=== PATIENT | female | born 1960 | race Caucasian/White ===

== ENCOUNTER 2017-10-14 08:02 | Emergency (ER) | payer OTHER, MEDICAID, SELFPAY ==
[2017-10-14] VITALS (14 sets, daily range): BP systolic 114–185; BP diastolic 52–99; PULSE 77–94; RESP 14–22; TEMP 37.1; O2SAT 92–99; BMI 34.3
--- NOTE | 2017-10-14 08:03 | DI.RAD.S_ITS ---
PROCEDURE: XR FEMUR LT MIN 2V INDICATIONS: pain. TECHNIQUE: 4 views of the femur were acquired. COMPARISON: None. FINDINGS: Bones: Status post lumbosacral fixation and total left hip arthroplasty. Hip components appear intact and in normal alignment. No fractures or dislocations. No suspicious bony lesions. 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 Soft tissues: No suspicious soft tissue calcifications or masses. IMPRESSION: 1. Status post total left hip arthroplasty with no apparent abnormality or source of pain. Dictated by: Gen Jenkins M.D. on 10/14/2017 at 8:31 Approved by: Gen Jenkins M.D. on 10/14/2017 at 8:33
--- NOTE | 2017-10-14 08:06 | DI.RAD.S_ITS ---
PROCEDURE: XR PELVIS 1-2V INDICATIONS: pain TECHNIQUE: One view(s) of the pelvis acquired. COMPARISON: [facility], CR, XR FEMUR LT MIN 2V, 10/14/2017, 8:06. [facility] [place], CR, XR PELVIS W LATERAL HIP LT, 02/28/2016, 13:30. FINDINGS: Bones: Postoperative changes of lumbosacral fixation with screws and vertical connecting rods bilaterally. Status post total left hip arthroplasty since last study with no apparent malalignment or loosening. There is a small bone fragment noted medial to the greater trochanter that may represent a small cortical avulsion. Advanced osteoarthritis of the right hip. No suspicious bony lesions. Soft tissues: Visualized bowel gas pattern is normal. No suspicious soft tissue calcifications. IMPRESSION: 1. Postoperative changes. Probable small cortical avulsion medial to the greater trochanter, chronicity indeterminate. 2. Advanced osteoarthritis right hip. 3. Status post lumbosacral fusion. Dictated by: Gen Jenkins M.D. on 10/14/2017 at 8:33 Approved by: Gen Jenkins M.D. on 10/14/2017 at 8:40
[2017-10-14] MEDS: KETOROLAC 60 MG/2 ML VIAL 30 MG IV (08:43)
--- NOTE | 2017-10-14 08:49 | ED.LOWEXIN ---
HPI - Extremity Injury (Lower) General Chief Complaint: Extremity Injury, Lower Stated Complaint: L hip pain Time Seen by Provider: 10/14/17 08:25 Source: patient and EMS Mode of arrival: EMS Limitations: no limitations History of Present Illness HPI Narrative: Patient is a 57-year-old female who presents with left hip pain. She is status post left total hip arthroplasty she was discharged from [facility] 3 days ago. She was ambulatory with a walker she was doing well. Yesterday she thinks she overdid it. And this morning she was trying have a bowel movement and rocking back and forth on the toilet. She did have a bowel movement however she is now not able to stand on her hip she denies numbness or tingling. She has not had fever or chills. She denies any fall. MD complaint: hip injury Related Data Home Medications Medication Instructions Recorded Confirmed acetaminophen [Mapap Extra 1,000 mg PO TID PRN 10/14/17 10/14/17 Strength] albuterol sulfate [Ventolin HFA] 2 puff INH Q4HP PRN 10/14/17 10/14/17 celecoxib [Celebrex] 200 mg PO BIDWM 10/14/17 10/14/17 cholecalciferol (vitamin D3) 1 tab PO DAILY 10/14/17 10/14/17 [Vitamin D3] cyclobenzaprine 10 mg PO BID 10/14/17 10/14/17 diclofenac sodium [Voltaren] 1 carolynn TOPICAL QID 10/14/17 10/14/17 fluticasone [Flonase Allergy 15.8 ml NS QDAY PRN 10/14/17 10/14/17 Relief] hydroxyzine pamoate 1 cap PO Q4H PRN 10/14/17 10/14/17 ipratropium-albuterol 3 ml INH QID PRN 10/14/17 10/14/17 lamotrigine [Lamictal] 200 mg PO QHS 10/14/17 10/14/17 loratadine 10 mg PO QDAY PRN 10/14/17 10/14/17 lorazepam [Ativan] 1 mg PO BID 10/14/17 10/14/17 omeprazole 40 mg PO QDAY PRN 10/14/17 10/14/17 ondansetron HCl 1 tab PO Q8H PRN 10/14/17 10/14/17 oxycodone 5 - 10 mg PO Q3H PRN 10/14/17 10/14/17 polyethylene glycol 3350 [Miralax] 17 gm PO EVERY OTHER DAY 10/14/17 10/14/17 rivaroxaban [Xarelto] 10 mg PO QPM 10/14/17 10/14/17 sennosides [senna] 2 tab PO BID PRN 10/14/17 10/14/17 tramadol 50 - 100 mg PO Q6H PRN 10/14/17 10/14/17 Previous Rx's Medication Instructions Recorded docusate sodium [DOK] 250 mg PO QDAY #90 sgl 10/28/16 levothyroxine [Synthroid] 0.075 mg PO QDAY #90 tab 11/24/16 duloxetine [Cymbalta] 20 mg PO QDAY #90 cap 04/07/17 duloxetine [Cymbalta] 60 mg PO QDAY #90 cap 04/08/17 trazodone 150 mg PO HS #30 tab 06/05/17 Allergies Allergy/AdvReac Type Severity Reaction Status Date / Time adhesive [ADHESIVE] Allergy Mild tape-rash Verified 10/14/17 08:43 codeine [CODEINE] Allergy Mild rash Verified 10/14/17 08:43 Sulfa (Sulfonamide Allergy Mild rash Verified 10/14/17 08:43 Antibiotics) [SULFA (SULFONAMIDE ANTIBIOTICS)] RAG WEED Allergy Unknown Uncoded 10/14/17 08:27 Review of Systems Review of Systems All systems reviewed & are unremarkable except as noted in HPI and below Constitutional Denies chills, Denies fever(s), Denies frequent falls, Denies lethargy and Denies weakness Cardiovascular Denies chest pain, Denies irregular heart rhythm, Denies lightheadedness, Denies palpitations, Denies dyspnea, Denies dyspnea on exertion and Denies orthopnea Respiratory Denies cough, Denies dyspnea, Denies dyspnea on exertion and Denies wheezing Musculoskeletal Reports system reviewed and no additional complaints, except as docu and Reports as per HPI Integumentary/Breasts Denies pruritus, Denies erythema, Denies rash and Denies wounds Neurologic Denies confusion, Denies frequent falls and Denies weakness Psychiatric Denies confusion Endocrine Denies palpitations Allergic/Immunologic Denies wheezing PFSH Surgical History History of total left hip arthroplasty (Acute) Status post delivery Status post cone biopsy of cervix Status post hysterectomy Family History Brother AML (acute myeloblastic leukemia) Mother Chronic back pain Social History household members: children Exam Initial Vital Signs Initial Vital Signs: Vital Signs Temperature 98.7 F 10/14/17 08:09 Pulse Rate 94 H 10/14/17 08:09 Respiratory Rate 22 10/14/17 08:09 Blood Pressure 114/63 10/14/17 08:09 Pulse Oximetry 97 10/14/17 08:09 Const General: cooperative and anxious Nutritional Appearance: average body habitus Orientation: alert, awake and oriented x3 Resp Effort & Inspection: normal respiratory effort, able to speak in complete sentences, no respiratory distress and no use of accessory muscles Auscultation: clear to auscultation bilaterally, no rales, no rhonchi and no wheezes Cardio Rate: regular rate Rhythm: regular rhythm Heart Sounds: no click, no gallops, no murmurs and no rubs Pulses: normal peripheral pulses GI Inspection: non-distended Palpation: soft, no hepatosplenomegaly, No guarding, No pulsatile mass and No tender Auscultation: normal bowel sounds Skin Other: Incision over all left hip clean dry no erythema no gross pus minimal swelling Neuro General: alert, awake and oriented x3 Cranial Nerves: CN's II-XI intact bilaterally Extrem General: normal to inspection Left lower extremity: normal to inspection Other: Left leg legs are of equal length distal pedal pulse in intact decreased range of motion due to pain and swelling of left hip knee and ankle within normal limits Course Hospital Course: Physical therapy in the ED to evaluate patient. Kendrick has kicked in she is a little under the influence but she is able to walk and ambulate with walker. Waiting for daughter feels that she can have specific instructions. Orders Ordered: ED Orders 10/14/17 09:00 Consult to Physical Therapy Evaluate & Treat Sodium Chloride (Normal Saline 0.9%) 1,000 mls @ 150 mls/hr IV CONT GHULAM Last Admin: 10/14/17 16:46 Dose: 150 mls/hr Discontinued Medications Hydromorphone HCl (Dilaudid) 1 mg IV NOW ONE Stop: 10/14/17 09:28 Last Admin: 10/14/17 09:30 Dose: 1 mg Lidocaine HCl 6.8 ml/ Sodium (Chloride) 56.8 mls @ 340.8 mls/hr IV NOW ONE Stop: 10/14/17 16:24 Last Infusion: 10/14/17 16:43 Dose: 0 mls/hr Admin: 10/14/17 16:25 Dose: 340.8 mls/hr Ketorolac Tromethamine (Toradol) 30 mg IV NOW ONE Stop: 10/14/17 08:38 Last Admin: 10/14/17 08:43 Dose: 30 mg Lidocaine HCl (Xylocaine 2%) 6.8 ml 0.075 ml/kg (6.8 ml) IV NOW ONE Stop: 10/14/17 15:37 Last Admin: 10/14/17 16:25 Dose: Lorazepam (Ativan) 0.5 mg IV NOW ONE Stop: 10/14/17 15:38 Last Admin: 10/14/17 15:57 Dose: 0.5 mg Oxycodone/Acetaminophen (Percocet 5/325) 1 tab PO NOW ONE Stop: 10/14/17 13:01 Last Admin: 10/14/17 13:04 Dose: 1 tab Reevaluation(s) Reevaluation #1: Dr. Balbuena at [facility] has been updated on patient's x-ray results. Likely over did it, he did get a call yesterday thing that she was in more pain and was doing a lot more. Recommends Toradol pushing images to [facility] follow-up next week on Thursday. Time: 08:57 Reevaluation #2: Dr. Balbuena office called the ED. Apparently he sees something on the x-ray recommend patient be transferred to [facility] she will need a revision. Time: 11:55 Vital Signs - 8 hr 10/14/17 10:32 10/14/17 11:06 10/14/17 11:30 Pulse Rate 88 92 H 82 Respiratory Rate 16 16 15 Blood Pressure [Left Arm] 151/91 H 117/52 L 118/61 Pulse Oximetry 94 94 95 10/14/17 13:30 10/14/17 14:00 10/14/17 14:30 Pulse Rate 86 88 85 Respiratory Rate Blood Pressure [Left Arm] 115/95 H 125/81 H 130/99 H Pulse Oximetry 94 96 96 10/14/17 15:30 10/14/17 16:30 10/14/17 17:31 Pulse Rate 80 85 84 Respiratory Rate 15 16 Blood Pressure [Left Arm] 138/79 H 131/69 H 185/87 H Pulse Oximetry 92 96 99 MDM - Extremity Injury (Lower) Imaging Data femur x ray: Attestation: I personally reviewed and interpreted this imaging study as follows: Radiologist's impression: PROCEDURE: XR FEMUR LT MIN 2V INDICATIONS: pain. TECHNIQUE: 4 views of the femur were acquired. COMPARISON: None. FINDINGS: Bones: Status post lumbosacral fixation and total left hip arthroplasty. Hip components appear intact and in normal alignment. No fractures or dislocations. No suspicious bony lesions. 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 Soft tissues: No suspicious soft tissue calcifications or masses. IMPRESSION: 1. Status post total left hip arthroplasty with no apparent abnormality or source of pain. Dictated by: Gen Jenkins M.D. on 10/14/2017 at 8:31 left hip: Attestation: I personally reviewed and interpreted this imaging study as follows: Radiologist's impression: PROCEDURE: XR PELVIS 1-2V INDICATIONS: pain TECHNIQUE: One view(s) of the pelvis acquired. COMPARISON: [facility], CR, XR FEMUR LT MIN 2V, 10/14/2017, 8:06. [facility] [place], ROSMERY, XR PELVIS W LATERAL HIP LT, 02/28/2016, 13:30. FINDINGS: Bones: Postoperative changes of lumbosacral fixation with screws and vertical connecting rods bilaterally. Status post total left hip arthroplasty since last study with no apparent malalignment or loosening. There is a small bone fragment noted medial to the greater trochanter that may represent a small cortical avulsion. Advanced osteoarthritis of the right hip. No suspicious bony lesions. Soft tissues: Visualized bowel gas pattern is normal. No suspicious soft tissue calcifications. IMPRESSION: 1. Postoperative changes. Probable small cortical avulsion medial to the greater trochanter, chronicity indeterminate. 2. Advanced osteoarthritis right hip. 3. Status post lumbosacral fusion. Dictated by: Gen Jenkins M.D. on 10/14/2017 at 8:33 MDM Narrative Medical decision making narrative: The patient being transferred to [facility] for total hip revision. Patient's pain has been relatively controlled here in the ED. She responded well to IV lidocaine. Discharge Plan Departure Patient Disposition: [facility] Clinical Impression: Post-operative complication, Post-op pain Instructions: DI for Postoperative Pain Prescriptions: No Action docusate sodium [DOK] 250 MG capsule 250 mg PO QDAY Qty: 90 RF: 3 levothyroxine [Synthroid] 75 MCG tablet 0.075 mg PO QDAY Qty: 90 RF: 3 duloxetine [Cymbalta] 20 MG capsule,delayed release(DR/EC) 20 mg PO QDAY Qty: 90 RF: 1 duloxetine [Cymbalta] 60 MG capsule,delayed release(DR/EC) 60 mg PO QDAY Qty: 90 RF: 3 trazodone 150 MG tablet 150 mg PO HS Qty: 30 RF: 3 tramadol 50 mg tablet 50 - 100 mg PO Q6H PRN (Reason: Pain, Moderate) RF: 0 acetaminophen [Mapap Extra Strength] 500 mg tablet 1,000 mg PO TID PRN (Reason: Pain, Mild) RF: 0 hydroxyzine pamoate 25 mg capsule 1 cap PO Q4H PRN (Reason: PAIN/ANXIETY) RF: 0 rivaroxaban [Xarelto] 10 mg tablet 10 mg PO QPM RF: 0 sennosides [senna] 8.6 mg Tablet 2 tab PO BID PRN (Reason: Constipation) RF: 0 ondansetron HCl 4 mg tablet 1 tab PO Q8H PRN (Reason: NAUSEA OR VOMITING) RF: 0 oxycodone 5 mg tablet 5 - 10 mg PO Q3H PRN (Reason: Pain, Severe) RF: 0 cholecalciferol (vitamin D3) [Vitamin D3] 5,000 unit Tablet 1 tab PO DAILY RF: 0 lamotrigine [Lamictal] 200 MG tablet 200 mg PO QHS RF: 0 celecoxib [Celebrex] 200 mg Capsule 200 mg PO BIDWM RF: 0 cyclobenzaprine 10 MG tablet 10 mg PO BID RF: 0 ipratropium-albuterol 3 ML solution for nebulization 3 ml INH QID PRN (Reason: Shortness Of Breath) RF: 0 polyethylene glycol 3350 [Miralax] 17 GM powder in packet 17 gm PO EVERY OTHER DAY RF: 0 omeprazole 40 MG capsule,delayed release(DR/EC) 40 mg PO QDAY PRN (Reason: Indigestion) RF: 0 lorazepam [Ativan] 1 MG tablet 1 mg PO BID RF: 0 albuterol sulfate [Ventolin HFA] 90 MCG/PUFF HFA aerosol inhaler 2 puff INH Q4HP PRN (Reason: Shortness Of Breath) RF: 0 fluticasone [Flonase Allergy Relief] 9.9 ML spray,suspension 15.8 ml NS QDAY PRN (Reason: Nasal Congestion) RF: 0 loratadine 10 MG tablet 10 mg PO QDAY PRN (Reason: Nasal Congestion) RF: 0 diclofenac sodium [Voltaren] 1 % gel 1 carolynn Topical QID RF: 0 Referrals: Pascale Mcguire MD [Primary Care Provider] - Petr Garcia MD [Non-Staff] -
--- NOTE | 2017-10-14 09:11 | PC.NURSE ---
S/W nurse from ortho office. Images sent per surgeon request.
[2017-10-14] MEDS: HYDROMORPHONE 2 MG INJ 1 MG IV (09:30)
--- NOTE | 2017-10-14 10:24 | PC.NURSE ---
PT pulled out own IV. Intact
--- NOTE | 2017-10-14 11:16 | PC.NURSE ---
Stable. Waiting for daughter to come and get instruction from PT prior to DC
--- NOTE | 2017-10-14 11:38 | PC.NURSE ---
PT here to show pts daughter how to assist pt with transfers at home
--- NOTE | 2017-10-14 12:23 | PC.NURSE ---
PT left note concerns over in home care for PT. PT has stated she does have home health and PT is set up. [place] is given with resources for PT.
[2017-10-14] MEDS: OXYCODONE/ACETAMINOPHEN 5/325 TABLET 1 TAB PO (13:04)
--- NOTE | 2017-10-14 13:26 | PT.IIE ---
Surgical History Status post delivery Status post cone biopsy of cervix Status post hysterectomy Physical Therapy Inpatient Evaluation/Re-Eval M1 PT/OT-IP Prior Functional Status Start: 10/14/17 13:06 Freq: Status: Active Protocol: Document 10/14/17 13:08 [facility] (Rec: 10/14/17 13:26 [facility] [id number]) Medical Review Prior Functional Status Medical History Reviewed Yes Mobility and Gait Since BAILEY pt has been using FWW Social History Household Members children Living Arrangements Apartment/Condo Number of Floors (Floors) One Floor Number of Stairs To Enter/Railing? 0 Home Environment Standard Height Toilet Tub/Shower Home Equipment Front Wheel Walker Four Wheel Walker Bedside Commode Raised Toilet Seat Without Armrests Shower Seat without Backrest Machine Operator Farmworker Employment Status Unemployed Additional Social History Comment Dgt just moved here to help pt . M2 PT-IP Current Condition Start: 10/14/17 13:06 Freq: Status: Active Protocol: Document 10/14/17 13:08 [facility] (Rec: 10/14/17 13:26 [facility] [id number]) Physical Therapy Current Condition Current Condition Evaluation Date 10/14/17 Treatment Diagnosis pain s/p L BAILEY Onset Date 10/09/17 L BAILEY post approach at [facility] Precautions Posterior Hip Precautions No Hip Flexion > 90 degrees No Hip Internal Rotation No Hip Adduction Weight Bearing Status Weight Bearing Status Weight Bear as Tolerated M3 PT-IP Subjective Start: 10/14/17 13:06 Freq: Status: Active Protocol: Document 10/14/17 13:08 [facility] (Rec: 10/14/17 13:26 [facility] [id number]) Subjective Physical Therapy Visit Type Type Initial Evaluation Notes 2 visits completed for pt in AM- 10-1035 & 1130 to 1205 totalling 70 minutes Number of PRODUCTION MANAGER Visits 0 Physical Therapy Visit Comments Patient Comments Pt reports she is scared of putting weight on LLE Therapy Pain Assessment Pain When Pain Assessed During Mobility Pain Present Pain Present Pain Reported Location Left Hip Pain Behaviors Calling Out Facial Grimacing [place] Pain Management Techniques Apply Cold M4 PT-IP Mobility and Gait Start: 10/14/17 13:06 Freq: Status: Active Protocol: Document 10/14/17 13:08 [facility] (Rec: 10/14/17 13:26 [facility] [id number]) PT-Bed Mobility Assessment Supine to Sit Supine to Sit Moderate Assistance Sit to Supine Sit to Supine Moderate Assistance Scooting Scooting to Edge of Bed Contact Guard Assistance Scooting Up and Down in Bed Standby Assistance Bed Transfer Assessment Technique Bed Transfer Destination Ambulatory Bed Transfer Technique Sit to/from Ambulatory Specific Evaluation Sit to Stand Bed Transfer Ability Standby Assistance Stand to Sit Bed Transfer Ability Standby Assistance Comments Factors Limiting Bed Transfer Decreased Strength Limited Range of Motion Pain Gait Assessment Gait Gait Assistance Required: Contact Guard Assist Minimum Assistance Distance (Feet) (feet) 50 Able to Maintain Weight Bearing Status Yes During Gait Assistive Devices Assistive Device Front Wheeled Walker Orthotic/Prosthetic Devices or Brace: No Gait Deviations General Gait Pattern Antalgic Decreased Stride Length Flexed Trunk Factors Limiting Gait Function Factors Limiting Gait Function Decreased Strength Limited Range of Motion Pain Poor Balance Comments Gait Comments 50ft FWW & 20 ft FWW during separate sessions- min A for first 20ft of 1st walk then CGA for rest of gait PT-Balance Assessment Sitting Balance and Reactions Static Sitting Balance Ability Normal Dynamic Sitting Balance Ability Normal Standing Balance and Reactions Static Standing Balance Ability Fair Dynamic Standing Balance Ability Fair M5 PT-IP Objective Assessments Start: 10/14/17 13:06 Freq: Status: Active Protocol: Document 10/14/17 13:08 [facility] (Rec: 10/14/17 13:26 [facility] [id number]) Strength Lower Extremity Strength Assessment Bilaterally Impaired M6 PT-IP Treatment Start: 10/14/17 13:06 Freq: Status: Active Protocol: Document 10/14/17 13:08 [facility] (Rec: 10/14/17 13:26 [facility] [id number]) Physical Therapy Treatment Education Education Provided Precautions Weight Bearing Status Safety Other Treatments Other Treatment Performed Edu on donning/doffing compression socks, discussed tub transfer bench and doing sponge baths until appropriate bath set up present, edu on how to use gait belt & staying with pt at all times, use of FWW vs 4WW, pt not doing LE dressing indep without assist & setting up all required items close to her. Edu to dgt how to help with bed mobility & avoiding low chairs & using cushion as needed M7 PT-IP Assessment and Plan Start: 10/14/17 13:06 Freq: Status: Active Protocol: Document 10/14/17 13:08 [facility] (Rec: 10/14/17 13:26 [facility] [id number]) PT Summary Assessment and Plan Potential Rehabilitation Potential Good Status of Condition at Evaluation Evolving Summary Impairments Pain ROM Strength Balance Bed Mobility Transfers Gait Assessment Summary Dgt was present for 2nd session & was educated to help pt and was very receptive to edu. Patient and dgt had no concerns when asked at end of session and dgt able to safely guard pt during mobility. Treatment Plan Other Recommendations and Next Treatment pt to d/c home after this Focus session Recommendations To Nursing Amount of Assist Needed 1 Person Assist Discharge Recommendations PT Discharge Recommendations Home with 08/12 Assist Home Health Provider Visit Care Team Role Provider Type Pascale Mcguire MD Family Provider Physician Primary Care Provider Specialty: Family Practice Sari Villeda DO Emergency Provider Physician Specialty: Emergency Medicine
[2017-10-14] MEDS: LORazepam 2 MG/ML SYRINGE 0.5 MG IV (15:57)
[2017-10-14] MEDS: LIDOCAINE 2% 6.8 ML in SODIUM CHLORIDE 0.9% 50 ML 340.8 ML IV (16:25)
[2017-10-14] MEDS: SODIUM CHLORIDE 0.9% 1,000 ML 150 ML IV (16:46)
[2017-10-14] MEDS: HYDROMORPHONE 0.5 MG INJ IV ×2 (18:48→19:53)
== END 2017-10-14 20:02 | disposition short-term general hospital (02) ==
PROVIDERS: Emergency Provider Emergency Medicine; Family Provider Family Medicine; PCP Family Medicine
DX: G89.18 Other acute postprocedural pain (principal)
CPT/HCPCS: 51701; 51705; 72170; 73552; 96365; 96375; 96376; 97162; 97530; 99284; 99285; J1170; J1885; J2060

== ENCOUNTER → 2018-06-01 10:15 | Outpatient (CLI) | payer OTHER, SELFPAY ==
[2018-06-01 11:21] LABS: Hematocrit 42.3 % (36-46); Hemoglobin 14.2 g/dL (12.0-16.0); Mean Corpuscular HGB Conc 33.5 % (30-36); Mean Corpuscular Hemoglobin 29.7 PG (26-34); Mean Corpuscular Volume 88.6 fL (80-100); Platelet Count 137 X10^3/uL (150-400); Red Blood Cell Count 4.77 X10^6/uL (4.0-5.2); Red Cell Distribution Width 13.8 % (11.6-14.8); White Blood Cell Count 7.8 X10^3/uL (4.5-11.0)
[2018-06-01 11:40] LABS: Hemoglobin A1C% w Est Avg Glu 5.5 % (4.0-6.0)
[2018-06-01 11:46] LABS: Vitamin D 25 Hydroxy (D3) 56.6 ng/mL (30.0-100.0)
[2018-06-01 11:50] LABS: Free T4, Direct Thyroxine 1.11 ng/dL (0.78-2.19)
[2018-06-01 12:04] LABS: Thyroid Stimulating Hormone 2.11 uIU/mL (0.47-4.68)
== END ==
PROVIDERS: PCP Student in an Organized Health Care Education/Training Program; Visit Provider Student in an Organized Health Care Education/Training Program
DX: E03.9 Hypothyroidism, unspecified (principal); D69.6 Thrombocytopenia, unspecified; E55.9 Vitamin D deficiency, unspecified; R73.9 Hyperglycemia, unspecified
CPT/HCPCS: 36415; 82306; 83036; 84439; 84443; 85027

== ENCOUNTER → 2018-08-04 16:04 | Outpatient (CLI) | payer OTHER, MEDICAID, SELFPAY ==
--- NOTE | 2018-08-04 16:06 | DI.RAD.S_ITS ---
PROCEDURE: XR CHEST 2V INDICATIONS: Cough TECHNIQUE: 2 views of the chest were acquired. COMPARISON: [facility], CHEST 1 VIEW, 02/07/2011, 5:37. [facility], CHEST 1 VIEW, 02/07/2011, 8:47. [facility], CHEST 2 VIEW, 08/10/2014, 10:31. FINDINGS: Surgical changes and devices: None. Lungs and pleura: Bilateral diffuse interstitial thickening and mild pulmonary fibrosis. No pleural effusions or pneumothorax. Mediastinum: Mediastinal contours are normal. Heart size is normal. Bones and chest wall: No suspicious bony abnormalities. Soft tissues appear unremarkable. IMPRESSION: Bilateral diffuse interstitial thickening and mild pulmonary fibrosis consistent with chronic interstitial lung disease. No focal consolidation or pleural effusion. Dictated by: Zainab Mackenzie M.D. on 08/04/2018 at 16:42 Approved by: Zainab Mackenzie M.D. on 08/04/2018 at 16:46
== END ==
PROVIDERS: PCP Student in an Organized Health Care Education/Training Program; Visit Provider Student in an Organized Health Care Education/Training Program
DX: R05 Cough (principal); J84.10 Pulmonary fibrosis, unspecified; F17.200 Nicotine dependence, unspecified, uncomplicated
CPT/HCPCS: 71046

== ENCOUNTER → 2018-12-06 09:08 | Outpatient (CLI) | payer OTHER, MEDICAID, SELFPAY ==
--- NOTE | 2018-12-06 09:14 | DI.CT.S_ITS ---
PROCEDURE: CT CHEST HIGH RESOLUTION INDICATIONS: Suspected pulmonary fibrosis; worsening sx TECHNIQUE: Noncontrast 1.0 and 5.0 mm thick contiguous axial sections from the pulmonary apex to the posterior costophrenic angles, with 7 mm thick coronal and sagittal MIP reformats. 1 mm thick dynamic expiratory images acquired through the upper, mid, and lower lungs. 1.0 mm thick axial sections acquired from the marisol to the posterior costophrenic angles in the prone end-inspiration position. For radiation dose reduction, the following was used: automated exposure control, adjustment of mA and/or kV according to patient size. COMPARISON: [facility], CT, PE STUDY (CTA CHEST), 10/16/2011, 13:24. FINDINGS: Image quality: Excellent. Lungs: There is moderate centrilobular emphysema with an apical predominance. Honeycombing fibrosis is present within the mid and lower lungs and is moderate in degree. A pleural-based spiculated mass is present along the anterior aspect of the lingula which measures approximately 1.2 x 1.2 cm and is new when compared with the prior CT dated 10/16/11 (series 5, image 107). A 1.0 x 0.8 cm pulmonary nodule is present at the left lung base (series 5, image 223). No acute airspace opacities. No pleural effusion or pneumothorax. No findings to suggest air-trapping on expiratory views. Pleura: No pleural effusions or pneumothorax. Mediastinum: Heart size is normal. No pericardial effusion. Thoracic aorta and central pulmonary arteries are normal in size. Scattered atheromatous calcifications are present within the aortic arch. Esophagus is normal in caliber. Bones and chest wall: No suspicious bony lesions. No vertebral body compression fractures. The thyroid gland is unremarkable. Abdomen: Visualized upper abdominal solid organs and bowel loops appear normal. IMPRESSION: 1. 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 Overall these findings have likely increased in extent when compared with the prior CT dated 10/16/11; however exact comparison is limited by technique differences. 2. Moderate centrilobular emphysema with apical predominance. 3. Pleural-based spiculated mass within the lingula which is new when compared with the study from 2011. Differential considerations include neoplasm and pulmonary scar. This lesion may be amenable to percutaneous CT-guided biopsy; however the risk of pneumothorax is extremely high given centrilobular emphysema. Alternatively, PET CT could be used to evaluate for abnormal metabolic activity. 4. Left basilar pulmonary nodule measuring up to 1 cm in diameter. PET CT could be used to evaluate this nodule as well. Given the location deep to the overlying rib, this may not be amenable to percutaneous biopsy. Dictated by: Mikki Powell M.D. on 12/06/2018 at 9:37 Approved by: Mikki Powell M.D. on 12/06/2018 at 9:44
== END ==
PROVIDERS: PCP Student in an Organized Health Care Education/Training Program; Visit Provider Student in an Organized Health Care Education/Training Program
DX: J84.10 Pulmonary fibrosis, unspecified (principal); J43.2 Centrilobular emphysema; R91.1 Solitary pulmonary nodule
CPT/HCPCS: 71250

== ENCOUNTER → 2019-02-04 10:24 | Outpatient (CLI) | payer OTHER, MEDICAID, SELFPAY ==
[2019-02-04 11:29] LABS: Platelet Count 32 X10^3/uL (150-400)
[2019-02-04 11:34] LABS: INR 0.9 (0.9-1.3); Prothrombin Time 10.7 SECONDS (10.1-12.7)
== END ==
PROVIDERS: PCP Student in an Organized Health Care Education/Training Program; Visit Provider Student in an Organized Health Care Education/Training Program
DX: R91.1 Solitary pulmonary nodule (principal); Z01.812 Encounter for preprocedural laboratory examination
CPT/HCPCS: 36415; 85049; 85610

== ENCOUNTER → 2019-02-11 08:27 | Outpatient (CLI) | payer OTHER, MEDICAID, SELFPAY ==
[2019-02-11 10:21] LABS: Platelet Count 28 X10^3/uL (150-400)
[2019-02-14 09:28] VITALS: BP 93/61; PULSE 80; RESP 18; TEMP 36.9
[2019-02-14 09:40] VITALS: BP 88/56; PULSE 67; RESP 16; TEMP 36.9
[2019-02-14 11:10] VITALS: BP 95/62; PULSE 82; RESP 16; TEMP 36.6; O2SAT 94
== END ==
PROVIDERS: PCP Student in an Organized Health Care Education/Training Program; Visit Provider Student in an Organized Health Care Education/Training Program
DX: D69.6 Thrombocytopenia, unspecified (principal)
CPT/HCPCS: 36415; 85049; 86850; 86900; 86901; P9016

== ENCOUNTER → 2019-02-14 08:15 | Oncology outpatient (ONC) | payer OTHER, MEDICAID, SELFPAY ==
--- NOTE | 2019-02-14 09:57 | PC.NURSE ---
Addendum entered by Jacquelyn Stark R.N. 02/14/19 11:52: This RN called Makeda RN in DI and notified pt declining procedure of lung Bx today. Addendum entered by Jacquelyn Stark R.N. 02/14/19 11:40: spoke with Jennifer who sent message to Dr. Michael about BP. order received for 1000ml NS over 2hr prior to DI procedure. pt anxious, crying and states, I don't want this procedure today. I can't do it. Could not administer Ativan secondary to hypotension. Pt declined receiving NS IVF. This RN called pt's friend Lorraine to see if she could come in and sit with pt now and for the procedure. Lorraine said she could not. saline lock dc'd with cath intact. BP 95/60. pt reported nausea, denied dizziness. pt ambulated off unit with 4 wheel walker. called Lorraine to pick pt up. Original Note: transfusion TAR under pt's account from 02/11/19. vitals documented on that date. pt anxious about receiving platelets and procedure. SBP 91 prior to starting platelets. 15min check SBP 88. message left for Jennifer at Dr. Ray's office.
[2019-02-14 11:05] VITALS: BP 95/62; PULSE 82; RESP 16; TEMP 36.6; O2SAT 94
== END ==
PROVIDERS: PCP Student in an Organized Health Care Education/Training Program; Visit Provider Student in an Organized Health Care Education/Training Program
DX: D69.6 Thrombocytopenia, unspecified (principal)
CPT/HCPCS: 36430; P9016

== ENCOUNTER → 2019-02-17 06:53 | Outpatient (CLI) | payer OTHER, MEDICAID, SELFPAY ==
[2019-02-17 08:17] LABS: Platelet Count 40 X10^3/uL (150-400)
== END ==
PROVIDERS: PCP Student in an Organized Health Care Education/Training Program; Visit Provider Student in an Organized Health Care Education/Training Program
DX: D69.6 Thrombocytopenia, unspecified (principal)
CPT/HCPCS: 36415; 85049